=== PATIENT | female | born 1970 | race Caucasian/White ===

== ENCOUNTER 2017-01-06 13:29 | Emergency (ER) | payer MEDICAID ==
[2017-01-06 13:42] VITALS: O2SAT 98; BMI 24.0
[2017-01-06 13:50] VITALS: RESP 18; TEMP 98.1
[2017-01-06] MEDS ORDERED: Sodium Chloride 0.9% 1,000 ML IV ONE (14:00)
[2017-01-06] MEDS ORDERED: Sodium Chloride 0.9% 1,000 ML ONE (14:17)
[2017-01-06 14:23] LABS: BASO # 0.1 K/uL (0.0-0.2); EOS % 1.1 % (0.0-4.0); LYMPH # 2.2 K/uL (1.0-4.3); MONO # 0.4 K/uL (0.0-0.8); NRBC % 0.1 % (0.0-2.0); RBC URINE < 1 /hpf (0-3); URINE BILIRUBIN NEGATIVE (NEGATIVE); URINE BLOOD NEGATIVE (NEGATIVE); URINE COLOR Yellow (YELLOW); URINE GLUCOSE (UA) NORMAL (Normal); URINE KETONE NEGATIVE (NEGATIVE); URINE LEUKOCYTE ESTERASE NEG Leu/uL (Negative); URINE PROTEIN NEGATIVE (NEGATIVE); URINE UROBILINOGEN NORMAL mg/dL (0.2-1.0); WBC URINE < 1 /hpf (0-5); WHITE BLOOD COUNT 4.2 K/uL (4.8-10.8)
[2017-01-06 14:27] LABS: CHLORIDE 100 mmol/L (98-107); SODIUM 142 mmol/L (132-148)
[2017-01-06 14:29] LABS: BILIRUBIN,TOTAL 0.6 mg/dL (0.2-1.3); GFR AFRICAN-AMERICAN > 60; HEMATOCRIT 40.3 % (34.0-47.0); MEAN CORPUSCULAR HEMOGLOBIN 32.3 pg (27.0-31.0); MEAN CORPUSCULAR HGB CONC 33.9 g/dL (33.0-37.0); MEAN PLATELET VOLUME 7.3 fL (7.2-11.7); MONO % 10.5 % (0.0-10.0); RED CELL DISTRIBUTION WIDTH 12.9 % (11.5-14.5)
[2017-01-06 14:30] LABS: ALB/GLOB RATIO 1.2 (1.0-2.1); ALKALINE PHOSPHATASE 119 U/L (38-126); ALT/SGPT 86 U/L (9-52); AST/SGOT 216 U/L (14-36); BLOOD UREA NITROGEN 7 mg/dL (7-17); CALCIUM 8.3 mg/dl (8.6-10.4); CARBON DIOXIDE 21 mmol/L (22-30); GLUCOSE,RANDOM 116 mg/dL (65-105); TOTAL PROTEIN 8.1 g/dL (6.3-8.3)
[2017-01-06 14:31] LABS: MAGNESIUM 1.8 mg/dL (1.6-2.3)
[2017-01-06 14:32] LABS: BASO % 3.5 % (0.0-2.0); PLATELET COUNT 266 K/uL (130-400)
[2017-01-06 14:33] LABS: MEAN CELL VOLUME 95.3 fL (81.0-99.0)
[2017-01-06] MEDS ORDERED: Iohexol 240 (50 ml) PO STA (14:34)
[2017-01-06 14:35] LABS: INR 0.9
[2017-01-06] MEDS ORDERED: Iohexol 240 (50 ml) ONE (14:50)
[2017-01-06 14:52] LABS: BASOPHIL 1 % (0-2); NEUTROPHIL 41 % (50-75); REACTIVE LYMPHOCYTES 9 % (0-0); TOTAL CELLS COUNTED 100
[2017-01-06 15:00] LABS: LARGE PLATELETS PRESENT
--- NOTE | 2017-01-06 15:09 | RAD ---
PROCEDURE: CHEST RADIOGRAPH, 1 VIEW HISTORY: Cough COMPARISON: None available. FINDINGS: LUNGS: Clear. PLEURA: No pneumothorax or pleural fluid seen. CARDIOVASCULAR: Normal. OSSEOUS STRUCTURES: No significant abnormalities. VISUALIZED UPPER ABDOMEN: Normal. OTHER FINDINGS: None. IMPRESSION: No active disease.
[2017-01-06] MEDS ORDERED: Iodixanol 320 MG/ML 100 ML BOTTLE IV ONE (16:06)
--- NOTE | 2017-01-06 16:59 | CT ---
PROCEDURE: CT Abdomen and Pelvis with contrast HISTORY: Abdominal pain and alcohol abuse COMPARISON: None. TECHNIQUE: Multiple contiguous axial images were performed through the abdomen and pelvis without the use of intravenous contrast. Subsequently, sagittal and coronal reformatted images were obtained. Radiation dose: Total exam DLP = 337 mGy-cm. This CT exam was performed using one or more of the following dose reduction techniques: Automated exposure control, adjustment of the mA and/or kV according to patient size, and/or use of iterative reconstruction technique. FINDINGS: LOWER THORAX: Lung bases demonstrate mild atelectasis in the lingula. LIVER: Prominent liver with diffuse fatty infiltration. GALLBLADDER AND BILE DUCTS: Question few small gallbladder calculi. PANCREAS: Mild heterogeneity and thickening at the level of the pancreatic head, nonspecific. SPLEEN: Preserved. Splenule. ADRENALS: Unremarkable. No mass. KIDNEYS AND URETERS: Unremarkable. No hydronephrosis. No solid mass. VASCULATURE: Unremarkable. No aortic aneurysm. BOWEL: Scattered focal areas of colonic thickening involving the ascending, descending, and sigmoid colon which may represent an underlying colitis. Clinical correlation. APPENDIX: Normal appendix. PERITONEUM: Unremarkable. No free fluid. No free air. LYMPH NODES: Unremarkable. No enlarged lymph nodes. BLADDER: Unremarkable. REPRODUCTIVE: Unremarkable. BONES: Degenerative changes in the spine. OTHER FINDINGS: None. IMPRESSION: Scattered focal areas of colonic thickening involving the ascending colon, descending colon, and sigmoid colon. This may represent an underlying colitis. Clinical correlation. Mild nonspecific thickening at the head of the pancreas without gross adjacent fat stranding or fluid. Nonspecific. Enlarged liver with diffuse fatty infiltration. Additional findings as above.
--- NOTE | 2017-01-06 17:30 | C.PDOC ---
Time Seen by Provider: 01/06/17 13:51 Chief Complaint (Nursing): Abdominal Pain History Per: Patient Onset/Duration Of Symptoms: Days (years), Waxing/Waning Current Symptoms Are (Timing): Still Present Context: Other (Alcohol abuse) Severity: Moderate Location Of Pain/Discomfort: Diffuse Radiation Of Pain To:: None Quality Of Discomfort: Unable To Describe Associated Symptoms: Nausea, Vomiting Alleviating Factors: None Additional History Per: Prior Records Past Medical History Reviewed: Historical Data, Nursing Documentation, Vital Signs Vital Signs: Last Vital Signs Temp 98.1 F 01/06/17 13:43 Pulse 117 H 01/06/17 13:43 Resp 18 01/06/17 13:43 BP 129/78 01/06/17 13:43 Pulse Ox 98 01/06/17 13:43 - Medical History PMH: Anxiety, Arthritis, Bipolar Disorder, Depression, HTN Other PMH: Alcohol abuse Surgical History: Family History: States: Unknown Family Hx - Social History Hx Tobacco Use: Yes Hx Alcohol Use: Yes Hx Substance Use: No - Immunization History Hx Tetanus Toxoid Vaccination: No Hx Influenza Vaccination: No Hx Pneumococcal Vaccination: No Review Of Systems Except As Marked, All Systems Reviewed And Found Negative. Constitutional: Negative for: Fever, Weakness Cardiovascular: Negative for: Chest Pain Respiratory: Positive for: Cough. Negative for: Shortness of Breath, Hemoptysis Gastrointestinal: Negative for: Melena, Hematochezia, Hematemesis Genitourinary: Negative for: Dysuria Musculoskeletal: Negative for: Neck Pain, Back Pain Neurological: Negative for: Weakness, Numbness, Seizures, Altered Mental Status , Headache Physical Exam - Physical Exam Appears: Non-toxic, No Acute Distress Skin: Warm, Dry Head: Atraumatic Eye(s): bilateral: PERRL, EOMI Neck: Normal ROM, No Midline Cervical Tenderness, No Step Off Deformity, Supple Chest: Symmetrical Cardiovascular: Rhythm Regular Respiratory: Normal Breath Sounds, No Accessory Muscle Use Gastrointestinal/Abdominal: Soft, Tenderness (mild nonspecific), No Guarding, No Rebound Back: No CVA Tenderness Extremity: Normal ROM Neurological/Psych: Oriented x3, Normal Motor, Normal Sensation ED Course And Treatment - Laboratory Results Result Diagrams: 01/06/17 14:15 01/06/17 14:15 Lab Interpretation: No Changes Compared To Prior Results O2 Sat by Pulse Oximetry: 98 Pulse Ox Interpretation: Normal - Radiology CXR: Viewed By Me, Read By Radiologist CXR Interpretation: Yes: No Acute Disease - CT Scan/US CT abdomen/pelvis Other Rad Studies (CT/US): Read By Radiologist, Radiology Report Reviewed CT/US Interpretation: IMPRESSION: Scattered focal areas of colonic thickening involving the ascending colon, descending colon, and sigmoid colon. This may represent an underlying colitis. Clinical correlation. Mild nonspecific thickening at the head of the pancreas without gross adjacent fat stranding or fluid. Nonspecific. Enlarged liver with diffuse fatty infiltration. Additional findings as above. Progress - Interventions Interventions:: Observation, Intravenous fluid - Medications Administered Intravenous: Antiemetic, Other (PPI) - Data Reviewed Data Reviewed: Lab, Diagnostic imaging, Old records - Patient Status Patient status: Mostly improved - Continuity of Care Discussed patient case with:: Patient, ED Nurse - Patient Plan Patient Plan: Discharge, F/U with PCP Disposition Counseled Patient/Family Regarding: Studies Performed, Diagnosis, Need For Followup, Rx Given, Smoking Cessation - Disposition Referrals: Ludwig Hutchins MD [Medical Doctor] - Disposition: HOME/ ROUTINE Disposition Time: 17:31 Condition: STABLE Additional Instructions: Avoid alcohol. Follow up with your doctor for further evaluation and treatment. Return to the ER if you develop bleeding, fever, worsening of symptoms or if you have any other concerns. Prescriptions: Pantoprazole Sodium [Protonix] 40 mg PO DAILY #14 ect Instructions: Abuse of Alcohol (ED), Abdominal Pain (ED) - Clinical Impression Clinical Impression: Alcohol abuse, Chronic abdominal pain
[2017-01-06 17:46] VITALS: BP 136/85; PULSE 78
== END 2017-01-06 17:53 | disposition home or self-care (01) ==
LOC: C.ER 13:29
DX: G89.29 Other chronic pain (principal); R10.9 Unspecified abdominal pain; F10.10 Alcohol abuse, uncomplicated; Y90.9 Presence of alcohol in blood, level not specified
CPT/HCPCS: 71010; 74177; 80053; 80320; 81001; 82948; 83690; 83735; 85025; 85610; 85730; 96361; 96374; 96375; 99284; C9113; J2405; J7040; Q9966; Q9967

== ENCOUNTER 2017-02-02 19:26 | Emergency (ER) | payer MEDICAID ==
[2017-02-02 19:26] VITALS: BMI 24.0
[2017-02-02 19:47] VITALS: BP 138/84; O2SAT 97
--- NOTE | 2017-02-02 20:28 | C.PDOC ---
History Of Present Illness 46 year old female Presents to the ER requesting ETOH detox, states her last drink was OVEN BAKER. Patient reports using daily ETOH, however she denies drug use and suicidal/homicidal ideations. Time Seen by Provider: 02/02/17 19:52 Chief Complaint (Nursing): Psychiatric Evaluation History Per: Patient History/Exam Limitations: no limitations Current Symptoms Are (Timing): Still Present Suicide/Self Injury Attempted (Context): None Modifying Factor(s): Alcohol Severity: Mild Associated Symptoms: denies: Suicidal Thoughts, Suicidal Plan Involuntary Hold By: None Past Medical History Reviewed: Historical Data, Nursing Documentation, Vital Signs Vital Signs: Last Vital Signs Temp 98 F 02/02/17 20:33 Pulse 88 02/02/17 20:33 Resp 18 02/02/17 20:33 BP 138/84 02/02/17 20:33 Pulse Ox 97 02/02/17 22:03 - Medical History PMH: Anxiety, Arthritis, Bipolar Disorder, Depression, HTN Surgical History: Family History: States: No Known Family Hx - Social History Hx Tobacco Use: Yes Hx Alcohol Use: Yes Hx Substance Use: No - Immunization History Hx Tetanus Toxoid Vaccination: No Hx Influenza Vaccination: No Hx Pneumococcal Vaccination: No Review Of Systems Except As Marked, All Systems Reviewed And Found Negative. Constitutional: Negative for: Fever, Chills Cardiovascular: Negative for: Chest Pain, Palpitations Respiratory: Negative for: Cough, Shortness of Breath Gastrointestinal: Negative for: Nausea, Vomiting, Abdominal Pain, Diarrhea Psych: Negative for: Suicidal ideation Physical Exam - Physical Exam Appears: Well, Non-toxic, Unkempt Skin: Normal Color, Warm, Dry Head: Atraumatic, Normacephalic Eye(s): bilateral: Normal Inspection Oral Mucosa: Moist Cardiovascular: Rhythm Regular Respiratory: Normal Breath Sounds, No Rales, No Rhonchi, No Wheezing Gastrointestinal/Abdominal: Normal Exam, Bowel Sounds, Soft, No Tenderness Extremity: Normal ROM Extremity: Bilateral: Atraumatic, Normal Color And Temperature, Normal ROM Neurological/Psych: Oriented x3 Gait: Steady ED Course And Treatment O2 Sat by Pulse Oximetry: 97 (Room air) Pulse Ox Interpretation: Normal Progress Note: Spoke with crisis counselor, there are no female detox beds currently available. Explained to patient she will need to return to ED at later date, or call crisis for prescreening. She is currently AAOx3, ambulating normally in the ED. Patient clinically sober, will discharge. Disposition Counseled Patient/Family Regarding: Diagnosis, Need For Followup - Disposition Referrals: Ludwig Hutchins MD [Medical Doctor] - Disposition: HOME/ ROUTINE Disposition Time: 20:30 Condition: STABLE Additional Instructions: RETURN TO ER AT LATER DATE TO TRY AGAIN FOR DETOX BED RETURN TO ER IF YOU HAVE ANY CONCERNING SYMPTOMS Instructions: Alcohol Dependence (ED) Print Language: KOREAN - Clinical Impression Clinical Impression: Alcohol abuse - Scribe Statement The provider has reviewed the documentation as recorded by the Scribe Rao Herring All medical record entries made by the Larryibconstantin were at my direction and personally dictated by me. I have reviewed the chart and agree that the record accurately reflects my personal performance of the history, physical exam, medical decision making, and the department course for this patient. I have also personally directed, reviewed, and agree with the discharge instructions and disposition.
[2017-02-02 20:34] VITALS: PULSE 88; RESP 18; TEMP 98
== END 2017-02-02 20:25 | disposition home or self-care (01) ==
LOC: C.ER 19:26
DX: F10.10 Alcohol abuse, uncomplicated (principal); Y90.9 Presence of alcohol in blood, level not specified